=== PATIENT | female | born 1935 | race African-American/Black ===

== ENCOUNTER 2021-11-27 18:00 | Emergency (ER) | payer SELFPAY ==
[~2021-11-27] VITALS: Ht 172.7 cm; Wt 68.0 kg
[2021-11-27 18:05] VITALS: BP 130/90
== END 2021-11-27 19:30 | disposition left against medical advice (07) ==
LOC: ER 18:00
DX: R07.89 Other chest pain (principal); I25.10 Atherosclerotic heart disease of native coronary artery without angina pectoris
CPT/HCPCS: 93005; 99283